=== PATIENT | male | born 1970 | race Caucasian/White ===

== ENCOUNTER 2023-10-19 10:07 | Emergency (ER) | payer SELFPAY ==
[~2023-10-19] VITALS: Ht 172.7 cm; Wt 79.0 kg
[2023-10-19 10:22] VITALS: O2SAT 95
[2023-10-19] MEDS: KETOROLAC 15MG/ML VIAL IM ONE (11:26)
[2023-10-19 11:55] VITALS: BP 135/87; PULSE 73; RESP 16; TEMP 36.66960; O2SAT 95
== END 2023-10-19 11:57 | disposition home or self-care (01) ==
LOC: ER 10:12
DX: S93.402A Sprain of unspecified ligament of left ankle, initial encounter (principal); W50.2XXA Accidental twist by another person, initial encounter; Y93.01 Activity, walking, marching and hiking; Y92.89 Other specified places as the place of occurrence of the external cause; Y99.8 Other external cause status
CPT/HCPCS: 73610; 96372; 99283; J1885; Z7610